=== PATIENT | male | born 1960 | race Caucasian/White ===

== ENCOUNTER → 2017-05-28 | Outpatient (CLI) | payer OTHER ==
[2017-05-28 16:20] LABS: BASO # 0.1 (0.0-0.2); BASO % 0.7 % (0.0-2.0); EOS # 0.3 (0.0-0.7); EOS % 2.7 % (0-4.0); GRAN # 6.3 (1.4-6.5); GRAN % 64.6 % (42.2-75.2); HEMOGLOBIN 15.4 g/dl (13.5-18.0); LYMPH % 20.1 % (20.0-51.0); MEAN CELL VOLUME 89 fl (80.0-100.0); MEAN CORPUSCULAR HEMOGLOBIN 30 pg (27.0-31.0); MEAN CORPUSCULAR HGB CONC 34 g/dl (33.0-37.0); MEAN PLATELET VOLUME 8.6 fl (7.4-10.4); MONO # 1.1 (0.1-0.6); MONO % 11.3 % (1.7-9.3); PLATELET COUNT 485 K/mm3 (130-400); RED BLOOD COUNT 5.13 M/mm3 (4.20-5.60); REDCELL DISTRIBUTION WIDTH-CV 15.1 % (11.5-14.5)
[2017-05-28 16:25] LABS: HEMATOCRIT 45.7 % (42.0-52.0)
== END ==
LOC: COL.LAB 09:07
PROVIDERS: Internal Medicine Hematology & Oncology
DX: E83.110 Hereditary hemochromatosis (principal)